=== PATIENT | male | born 1955 | race Two or more races ===

== ENCOUNTER 2018-09-06 18:26 | Emergency (ER) | payer SELFPAY ==
[~2018-09-06] VITALS: Ht 170.2 cm; Wt 140.0 kg
[2018-09-06 18:31] VITALS: BP 155/100
== END 2018-09-06 18:49 | disposition left against medical advice (07) ==
LOC: ER 18:26
DX: Z53.21 Procedure and treatment not carried out due to patient leaving prior to being seen by health care provider (principal)